=== PATIENT | female | born 1990 | race African-American/Black ===

== ENCOUNTER 2018-05-16 17:53 | Emergency (ER) | payer OTHER, MEDICAID ==
[~2018-05-16] VITALS: Ht 160 cm; Wt 60.7 kg
[2018-05-16 18:02] VITALS: BP 124/94; PULSE 82; RESP 16; TEMP 98.7; O2SAT 99
[2018-05-16] MEDS ORDERED: CYCL10TA PO (19:38)
[2018-05-16] MEDS ORDERED: IBUP1TAB7 PO (19:38)
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
[2018-05-16] MEDS ORDERED: IBUPROFEN 800 MG TAB PO ONE (19:45)
== END 2018-05-16 19:51 | disposition home or self-care (01) ==
LOC: PHEFT 17:53
DX: S29.012A Strain of muscle and tendon of back wall of thorax, initial encounter (principal); S39.012A Strain of muscle, fascia and tendon of lower back, initial encounter; V49.49XA Driver injured in collision with other motor vehicles in traffic accident, initial encounter
CPT/HCPCS: 99283